=== PATIENT | male | born 2000 | race Caucasian/White ===

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

== ENCOUNTER 2021-05-12 09:24 | Emergency (ER) | payer OTHER, SELFPAY ==
[2021-05-12] MEDS ORDERED: Ibuprofen 200 MG TAB ONE (09:40)
[2021-05-13 01:30] LABS: SARS-CoV-2 PCR by NAA Not Detected (NotDetected)
== END 2021-05-12 09:50 | disposition home or self-care (01) ==
LOC: NAV ERS 09:24
DX: R06.02 Shortness of breath (principal); R53.1 Weakness; R53.83 Other fatigue; R05 Cough; R11.2 Nausea with vomiting, unspecified; M79.10 Myalgia, unspecified site; R53.81 Other malaise; Z20.822 Contact with and (suspected) exposure to COVID-19; J45.909 Unspecified asthma, uncomplicated
CPT/HCPCS: 99283; U0003; U0005

== ENCOUNTER 2021-08-12 11:30 | Emergency (ER) | payer SELFPAY ==
[2021-08-12] MEDS ORDERED: Ibuprofen 200 MG TAB ONE (11:48)
[2021-08-14 11:12] LABS: SARS-CoV-2 PCR by NAA Not Detected (NotDetected)
== END 2021-08-12 12:10 | disposition home or self-care (01) ==
LOC: NAV ERS 11:30
DX: J45.909 Unspecified asthma, uncomplicated (principal); Z20.822 Contact with and (suspected) exposure to COVID-19
CPT/HCPCS: 99283; U0003; U0005

== ENCOUNTER 2021-09-12 18:35 | Emergency (ER) | payer SELFPAY ==
[~2021-09-12 18:35] MED LIST: Iopamidol 370 76% 100 ML VIAL ONE
[2021-09-12] MEDS ORDERED: Sodium Chloride 0.9% 1,000 ML ONE (19:06)
[2021-09-12] MEDS ORDERED: Ondansetron PF 4 MG/2 ML Vial ONE (19:06)
[2021-09-12] MEDS ORDERED: Morphine 4 MG/ML VIAL ONE ×2 (19:06→20:33)
[2021-09-12 19:25] LABS: #Basophils 0.1 thou/uL (0.0-0.2); #Eosinphils 0.2 thou/uL (0.0-0.7); #Lymphocytes 3.4 thou/uL (1.20-3.40); #Monocytes 1.1 thou/uL (0.11-0.59); #Neutrophils 6.5 thou/uL (1.40-6.50); %Basophils 1.2 % (0.0-1.0); %Eosinophils 1.8 % (0.0-10.0); %Lymphocytes 29.9 % (28.0-48.0); %Monocytes 9.9 % (0.0-4.0); %Neutrophils 57.2 % (31.0-61.0); Hemoglobin 17.1 g/dL (14.0-18.0); Mean Corpuscular HGB CONC 32.9 g/dL (32.0-36.0); Mean Corpuscular Hemoglobin 29.6 pg (25.0-35.0); Mean Platelet Volume 6.7 fL (7.4-10.4); Platelet Count 281 thou/uL (130-400); RBC Distribution Width 11.5 % (11.5-14.5); Red Blood Cell (RBC) Count 5.78 mill/uL (4.00-5.20); White Blood Cell (WBC) Count 11.3 thou/uL (4.8-10.8)
[2021-09-12 19:41] LABS: ALT (SGPT) 87 U/L (8-55); AST (SGOT) 36 U/L (5-34); Albumin 4.6 g/dL (3.5-5.0); Alkaline Phosphatase 79 U/L (50-130); Anion Gap 14 mmol/L (10-20); BUN (Urea Nitrogen) 10 mg/dL (8.9-20.6); Bilirubin, Total 0.8 mg/dL (0.2-1.2); Calc. Creatinine Clearance 0 mL/min (70-130); Calcium 10.1 mg/dL (7.8-10.44); Carbon Dioxide 26 mmol/L (22-29); Chloride 103 mmol/L (98-107); Globulin 3.5 g/dL (2.4-3.5); Glucose 101 mg/dL (70-105); Lipase 12 U/L (8-78); Potassium 4.1 mmol/L (3.5-5.1); Protein, Total 8.1 g/dL (6.0-8.3); Sodium 139 mmol/L (136-145)
[2021-09-12] MEDS ORDERED: Mag-Al Plus 1200 MG/1200 MG/120 MG/30 ML UDCUP ONE (20:33)
[2021-09-12] MEDS ORDERED: Lidocaine Viscous Sol 2% 15 ml UD Cup ONE (20:33)
[2021-09-12 20:38] LABS: Bilirubin Small (Negative); Blood, Urine Negative (Negative); Glucose, Urine (Dipstick) Negative (Negative); Ketone, Urine Negative (Negative); Leukocyte Negative (Negative); Nitrite Negative (Negative); Protein, Urine (Dipstick) 30 mg/dL (Neg-Trace); Specific Gravity, Urine 1.025 (1.005-1.030)
[2021-09-12 20:39] LABS: Clarity SL HAZY (Clear)
[2021-09-12 20:40] LABS: RBC/HPF 0-3 HPF (0-3)
[2021-09-12] MEDS ORDERED: Fentanyl 100 MCG/2 ML VIAL ONE (21:08)
[2021-09-12] MEDS ORDERED: Pantoprazole 40 MG VIAL ONE (22:22)
[2021-09-12] MEDS ORDERED: Ketorolac Tromethamine 30 MG/ML VIAL ONE (22:30)
== END 2021-09-13 00:21 | disposition home or self-care (01) ==
LOC: NAV ERS 18:35
DX: I88.0 Nonspecific mesenteric lymphadenitis (principal); J45.909 Unspecified asthma, uncomplicated
CPT/HCPCS: 74022; 74177; 80053; 81003; 81015; 83605; 83690; 85025; 96374; 96375; 96376; C9113; J1885; J2270; J2405; J3010; J7050; Q9967

== ENCOUNTER 2022-01-19 08:15 | Emergency (ER) | payer SELFPAY | END 2022-01-19 09:46 | disposition home or self-care (01) | LOC: NAV ERS 08:15 | DX: S62.334A Displaced fracture of neck of fourth metacarpal bone, right hand, initial encounter for closed fracture (principal); W22.8XXA Striking against or struck by other objects, initial encounter | CPT/HCPCS: 29125 ==

== ENCOUNTER 2022-04-10 20:44 | Emergency (ER) | payer OTHER, SELFPAY ==
[2022-04-10] MEDS ORDERED: Ibuprofen 800 MG TAB ONE (21:06)
== END 2022-04-10 21:37 | disposition home or self-care (01) ==
LOC: NAV ERS 20:44
DX: S43.51XA Sprain of right acromioclavicular joint, initial encounter (principal); X58.XXXA Exposure to other specified factors, initial encounter

== ENCOUNTER 2024-02-29 17:48 | Emergency (ER) | payer OTHER ==
[2024-02-29 18:11] LABS: #Basophils 0.1 thou/uL (0.0-0.2); #Eosinphils 0.4 thou/uL (0.0-0.7); #Lymphocytes 3.4 thou/uL (1.20-3.40); #Monocytes 0.7 thou/uL (0.11-0.59); #Neutrophils 6.7 thou/uL (1.40-6.50); %Basophils 0.9 % (0.0-1.0); %Eosinophils 3.4 % (0.0-10.0); %Lymphocytes 30.4 % (21.0-51.0); %Monocytes 6.5 % (0.0-10.0); %Neutrophils 58.8 % (42.0-75.0); Hematocrit 48.3 % (42.0-52.0); Hemoglobin 15.4 g/dL (14.0-18.0); Mean Corpuscular Volume 87.7 fl (78.0-98.0); Mean Platelet Volume 7.7 fL (7.4-10.4); Platelet Count 253 10x3/uL (130-400); RBC Distribution Width 11.5 % (11.5-14.5); Red Blood Cell (RBC) Count 5.51 mill/uL (4.70-6.10); White Blood Cell (WBC) Count 11.3 10x3/uL (4.8-10.8)
[2024-02-29] MEDS ORDERED: Sucralfate 1 GM TAB ONE (18:12)
[2024-02-29] MEDS ORDERED: Aspirin Chewable 81 MG TAB ONE (18:12)
[2024-02-29] MEDS ORDERED: Pantoprazole 40 MG VIAL ONE (18:12)
[2024-02-29 18:32] LABS: ALT (SGPT) 31 U/L (8-55); AST (SGOT) 18 U/L (5-34); Albumin 4.4 g/dL (3.5-5.0); Alkaline Phosphatase 50 U/L (40-110); Anion Gap 13 mmol/L (10-20); BUN (Urea Nitrogen) 15 mg/dL (8.9-20.6); Bilirubin, Total 0.7 mg/dL (0.2-1.2); Calc. Creatinine Clearance 0 mL/min (70-130); Calcium 9.3 mg/dL (7.8-10.44); Carbon Dioxide 21 mmol/L (22-29); Chloride 109 mmol/L (98-107); Estimated GFR 125; Globulin 2.7 g/dL (2.4-3.5); Glucose 85 mg/dL (70-105); Lipase 16 U/L (8-78); Potassium 3.9 mmol/L (3.5-5.1); Protein, Total 7.1 g/dL (6.0-8.3); Sodium 139 mmol/L (136-145)
[2024-02-29 18:33] LABS: Troponin I Less than 0.010 ng/mL (< 0.028)
[2024-02-29 19:02] LABS: Amphetamine Not Detected (NotDetected); Barbiturates Screen Not Detected (NotDetected); Benzodiazepine Screen Not Detected (NotDetected); Cocaine Metabolite Screen Not Detected (NotDetected); Methadone Not Detected (NotDetected); Methamphetamine Not Detected (NotDetected); Opiate Screen Not Detected (NotDetected); Oxycodone Screen Not Detected (NotDetected); Phencyclidine (PCP) Not Detected (NotDetected); THC/Cannabinoid Screen Detected (NotDetected); Tricyclic Screen Not Detected (NotDetected)
[2024-02-29 19:03] LABS: Bilirubin Negative (Negative); Blood, Urine Negative (Negative); Clarity Clear (Clear); Glucose, Urine (Dipstick) Negative (Negative); Ketone, Urine Negative (Negative); Leukocyte Negative (Negative); Nitrite Negative (Negative); Protein, Urine (Dipstick) Negative (Neg-Trace); Urine Culture Reflex No No; Urobilinogen 0.2 mg/dL (Less than 2); pH, Urine 6.5 (5.0-9.0)
[2024-02-29 19:05] LABS: CAUTI Indications for Culture Pelvic or flank pain; RBC/HPF 0-3 HPF (0-3); Specific Gravity, Urine 1.028 (1.002-1.036); WBC/HPF None Seen HPF (0-3)
== END 2024-02-29 19:14 | disposition home or self-care (01) ==
LOC: NAV ERS 17:48
DX: K29.70 Gastritis, unspecified, without bleeding (principal)
CPT/HCPCS: 71046; 80053; 80306; 81001; 83690; 84484; 85025; 93005; 96374; C9113